=== PATIENT | female | born 1970 | race African-American/Black ===

== ENCOUNTER 2017-11-14 21:38 | Emergency (ER) | payer OTHER ==
[~2017-11-14] VITALS: Ht 175.3 cm; Wt 84.4 kg
[2017-11-14] MEDS ORDERED: NKM (22:10)
[2017-11-14] MEDS ORDERED: LIDOCAINE700 M1 TP (22:49)
[2017-11-14] MEDS ORDERED: ROBAXIN-750750 MG PO (22:49)
[2017-11-14] MEDS ORDERED: IBUPROFEN600 MG ORAL (22:49)
[2017-11-14 22:56] VITALS: BP_SYST 122; BP_SYST 128; BP_DIAS 90
[2017-11-14] MEDS ORDERED: Ketorolac 60mg Inj IM ONE (23:00)
--- NOTE | 2017-11-15 01:59 | Emergency Room Report ---
History of Present Illness General Chief Complaint: Headache Source: Patient Present Illness [facility] This is a 46 female presented after increased headache and neck pain. Patient gradual onset of symptoms patient reported having pain for several days. She reported having a nonproductive cough. Patient stated that she previously had hardware placed her neck. She denies any fever she denies any numbness or weakness to her extremities. Pain is sharp in nature worse with movement. Allergies: Coded Allergies: No Known Allergies (Unverified , 11/14/17) Patient History Past Medical History: see triage record Last Menstrual Period: Oct Reviewed Nursing Documentation: PMH: Agreed, PSxH: Agreed Nursing Documentation-PMH Past Medical History: No Stated History Review of Systems All Other Systems: negative except mentioned in HPI Physical Exam Vital Signs Date Time Temp Pulse Resp B/P (MAP) Pulse Ox O2 Delivery O2 Flow Rate FiO2 11/14/17 22:05 97.9 91 16 128/90 99 Room Air General Appearance: well appearing, no apparent distress, alert, GCS 15 Head: normocephalic, atraumatic ENT: hearing grossly normal, normal voice Neck: full range of motion, supple Respiratory: normal inspection, lungs clear, normal breath sounds, no respiratory distress, speaking full sentences Cardiovascular #1: normal peripheral pulses, regular rate, rhythm, no edema Musculoskeletal: normal inspection, no calf tenderness Neurologic: normal inspection, alert, oriented x3, normal gait Psychiatric: mood/affect normal Skin: no rash Medical Decision Making Diagnostic Impression: Primary Impression: Neck pain Additional Impressions: Viral respiratory illness Muscle spasm ER Course Patient presented for neck pain. Differential diagnosis included vertebral artery dissection, myocardial infarction, cervical fracture, arthritis, spondylolithises. Patient's benign exam and does not appear to require any further imaging or laboratory testing at this time. Patient has a nonfocal neurologic exam. The patient's pain appears to be muscular related. She additionally appears to have a viral respiratory infection consistent with influenza. The patient is advised to follow up with primary care doctor in 1-2 days. Patient was advised that she may need MRI if pain persists. Patient is advised to return if any worsening condition or if any changes in status that are concerning. 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 Last Vital Signs Date Time Temp Pulse Resp B/P (MAP) Pulse Ox O2 Delivery O2 Flow Rate FiO2 11/14/17 22:58 97.9 11/14/17 22:56 91 16 128/90 99 Room Air Status: improved Disposition: HOME, SELF-CARE Condition: Stable Scripts Ibuprofen* (MOTRIN*) 600 Mg Tablet 600 MG ORAL Q8H Y for For Pain, #30 TAB 0 Refills Prov: Cody Valencia 11/14/17 Lidocaine (Lidocaine) 1 Each Adh..patch 700 MG TP DAILY, #14 PATCH Prov: Cody Valencia 11/14/17 Methocarbamol* (ROBAXIN-750*) 750 Mg Tablet 750 MG PO TID, #21 TAB 0 Refills Prov: Cody Valencia 11/14/17 Referrals: NOT CHOSEN IPA/MD,REFERRING (PCP) Patient Instructions: Cervical Sprain, [id number], Tension Headache Cody Valencia Nov 15, 2017 01:59
== END 2017-11-14 22:59 | disposition home or self-care (01) ==
LOC: EMR 22:49
DX: M54.2 Cervicalgia (principal); M62.838 Other muscle spasm; B34.9 Viral infection, unspecified
CPT/HCPCS: 96372; 99283